=== PATIENT | female | born 1930 | race Caucasian/White ===

== ENCOUNTER → 2017-02-23 | Outpatient (CLI) | payer MEDICARE | END | disposition home or self-care (01) | LOC: RAH 08:26 | PROVIDERS: ATTEND Physical Medicine & Rehabilitation | DX: M47.896 Other spondylosis, lumbar region (principal); M48.061 Spinal stenosis, lumbar region without neurogenic claudication; M41.86 Other forms of scoliosis, lumbar region | CPT/HCPCS: 72148 ==

== ENCOUNTER → 2017-08-06 | Outpatient (CLI) | payer MEDICARE | END | disposition home or self-care (01) | LOC: RAH 12:32 | PROVIDERS: ATTEND Physical Medicine & Rehabilitation | DX: M48.061 Spinal stenosis, lumbar region without neurogenic claudication (principal); M41.86 Other forms of scoliosis, lumbar region | CPT/HCPCS: 72148 ==

== ENCOUNTER 2017-10-23 12:06 | Emergency (ER) | payer MEDICARE | END 2017-10-23 14:10 | disposition home or self-care (01) | LOC: EDH 12:06 | DX: S43.401A Unspecified sprain of right shoulder joint, initial encounter (principal); I10 Essential (primary) hypertension; W18.39XA Other fall on same level, initial encounter; Y93.01 Activity, walking, marching and hiking; Y92.89 Other specified places as the place of occurrence of the external cause; Y99.8 Other external cause status | CPT/HCPCS: 73030; 73060 ==

== ENCOUNTER → 2018-09-29 | Outpatient (CLI) | payer MEDICARE | END | disposition home or self-care (01) | LOC: RAH 08:39 | PROVIDERS: ATTEND Anesthesiology | DX: M48.54XA Collapsed vertebra, not elsewhere classified, thoracic region, initial encounter for fracture (principal); M51.16 Intervertebral disc disorders with radiculopathy, lumbar region; M47.26 Other spondylosis with radiculopathy, lumbar region; M41.85 Other forms of scoliosis, thoracolumbar region | CPT/HCPCS: 72148 ==

== ENCOUNTER → 2019-04-12 | Outpatient (CLI) | payer MEDICARE | END | disposition home or self-care (01) | LOC: RAH 11:19 | PROVIDERS: ATTEND Physical Medicine & Rehabilitation | DX: M47.816 Spondylosis without myelopathy or radiculopathy, lumbar region (principal); M41.86 Other forms of scoliosis, lumbar region | CPT/HCPCS: 72114 ==

== ENCOUNTER → 2019-04-14 | Outpatient (CLI) | payer MEDICARE | END | disposition home or self-care (01) | LOC: RAH 15:43 | PROVIDERS: ATTEND Physical Medicine & Rehabilitation | DX: S22.080A Wedge compression fracture of T11-T12 vertebra, initial encounter for closed fracture (principal); M47.27 Other spondylosis with radiculopathy, lumbosacral region; M41.85 Other forms of scoliosis, thoracolumbar region; M25.78 Osteophyte, vertebrae; X58.XXXA Exposure to other specified factors, initial encounter; Y93.89 Activity, other specified; Y92.89 Other specified places as the place of occurrence of the external cause; Y99.8 Other external cause status | CPT/HCPCS: 72148 ==

== ENCOUNTER 2019-04-20 07:19 | Emergency (ER) | payer MEDICARE ==
[2019-04-20] MEDS ORDERED: DEXAMETHASONE SOD PHOSPHATE 10MG/ML 1ML VIAL ONE (07:52)
[2019-04-20] MEDS ORDERED: KETOROLAC TROMETHAMINE 30MG/ML ONE (07:53)
== END 2019-04-20 08:59 | disposition home or self-care (01) ==
LOC: EDH 07:19
DX: M54.40 Lumbago with sciatica, unspecified side (principal); I10 Essential (primary) hypertension
CPT/HCPCS: 96372 ×2; 99284; J1100; J1885

== ENCOUNTER 2019-04-22 17:26 | Emergency (ER) | payer MEDICARE ==
[2019-04-22] MEDS ORDERED: TRAMADOL HCL 50 MG TABLET ONE (18:22)
[2019-04-22] MEDS ORDERED: ONDANSETRON ODT 4 MG TAB ONE (19:43)
[2019-04-22] MEDS ORDERED: MORPHINE SULFATE 4 MG/1ML SYG ONE (19:44)
== END 2019-04-22 20:35 | disposition home or self-care (01) ==
LOC: EDH 17:26
DX: G89.29 Other chronic pain (principal); M54.30 Sciatica, unspecified side; I10 Essential (primary) hypertension
CPT/HCPCS: 72192; 96372; 99284; J2270

== ENCOUNTER → 2019-07-25 | Outpatient (CLI) | payer MEDICARE | END | disposition home or self-care (01) | LOC: OIH 14:44 | PROVIDERS: ATTEND Physical Medicine & Rehabilitation | DX: M25.521 Pain in right elbow (principal); W19.XXXA Unspecified fall, initial encounter; Y93.89 Activity, other specified; Y92.89 Other specified places as the place of occurrence of the external cause; Y99.8 Other external cause status ==

== ENCOUNTER → 2019-11-07 | Outpatient (CLI) | payer MEDICARE | END | disposition home or self-care (01) | LOC: OIH 13:44 | PROVIDERS: ATTEND Physical Medicine & Rehabilitation | DX: M43.8X4 Other specified deforming dorsopathies, thoracic region (principal); M41.85 Other forms of scoliosis, thoracolumbar region; M47.814 Spondylosis without myelopathy or radiculopathy, thoracic region; M47.816 Spondylosis without myelopathy or radiculopathy, lumbar region | CPT/HCPCS: 72074 ==

== ENCOUNTER → 2019-11-16 | Outpatient (CLI) | payer MEDICARE | END | disposition home or self-care (01) | LOC: RAH 14:02 | PROVIDERS: ATTEND Physical Medicine & Rehabilitation | DX: M48.56XA Collapsed vertebra, not elsewhere classified, lumbar region, initial encounter for fracture (principal); M51.26 Other intervertebral disc displacement, lumbar region; M48.061 Spinal stenosis, lumbar region without neurogenic claudication | CPT/HCPCS: 72148 ==

== ENCOUNTER 2020-02-21 07:50 | Day surgery (SDC) | payer MEDICARE ==
[2020-02-21] VITALS (7 sets, daily range): BP systolic 97–127; BP diastolic 51–61
[~2020-02-21] VITALS: Ht 160 cm; Wt 51.1 kg
[~2020-02-21 07:50] MED LIST: DONE5TAB33 PO; FAMO20TA8 PO; FERR-63 PO; HYDR-4060 PO; LISI10TA7 PO; SODIUM CHLORIDE 0.9% 1000ML 1,000 ML IV ONE
[2020-02-21 08:50] LABS: BASOPHILS % (AUTO) 0.5 % (0.0-5.0); HEMATOCRIT 29.5 % (36-48); LYMPHOCYTES % (AUTO) 11.5 % (21.0-51.0); MEAN CORPUSCULAR HEMOGLOBIN 27.8 pg (27.0-33.0); MEAN CORPUSCULAR HGB CONC 31.5 g/dL (32.0-36.0); MEAN CORPUSCULAR VOLUME 88.1 fL (79-99); MONOCYTES % (AUTO) 15.3 % (3.0-13.0); NEUTROPHILS % (AUTO) 70.8 % (40.0-77.0); PLATELET COUNT (AUTO) 220 K/uL (130-400); RED BLOOD CELL COUNT(AUTO) 3.35 MIL/uL (4.00-5.50); RED CELL DISTRIBUTION WIDTH 24.4 % (11.0-15.5); WHITE BLOOD COUNT (AUTO) 5.8 K/uL (4.8-10.8)
[2020-02-21] MEDS ORDERED: PROPOFOL 10 MG/ML 20ML VIAL IV ONE (09:42)
[2020-02-21] MEDS ORDERED: GLYCOPYRROLATE 1 MG/5 ML SYRINGE ONE (10:08)
[2020-02-21] MEDS ORDERED: SODIUM CHLORIDE 0.9% 10 ML VIAL ONE (10:11)
== END 2020-02-21 10:50 | disposition home or self-care (01) ==
LOC: ENDO 07:50 → DAH 07:50 → ENDO 10:50
PROVIDERS: ATTEND Internal Medicine Gastroenterology
DX: D50.0 Iron deficiency anemia secondary to blood loss (chronic) (principal); K44.9 Diaphragmatic hernia without obstruction or gangrene; K29.50 Unspecified chronic gastritis without bleeding; K31.89 Other diseases of stomach and duodenum; I10 Essential (primary) hypertension; M19.90 Unspecified osteoarthritis, unspecified site; G30.1 Alzheimer's disease with late onset; M35.3 Polymyalgia rheumatica; Z79.899 Other long term (current) drug therapy
CPT/HCPCS: 36415; 43239; 45378; 85025; 88305; 88342; A4215; A4221; A4222; A4223; A4606; A4620; A4657; A4663; C9803; J2704; J3490; J7030; U0003

== ENCOUNTER 2021-03-16 19:37 | Inpatient (IN) | payer MEDICARE ==
[~2021-03-16] VITALS: Ht 160 cm; Wt 58.0 kg
[~2021-03-16 19:37] MED LIST changes: +LISI10TA24 PO; -LISI10TA7 PO; -SODIUM CHLORIDE 0.9% 1000ML 1,000 ML IV ONE
[2021-03-16] MEDS ORDERED: ONDANSETRON 4MG INJ IVP ONE (21:00)
[2021-03-16] MEDS ORDERED: MORPHINE 2 MG SYG IVP ONE (21:00)
[2021-03-16] MEDS ORDERED: TETANUS/DIPHTHERIA TOXOID [ADULT] 0.5 ML VIAL IM ONE (21:00)
[2021-03-16 22:22] LABS: BASOPHILS % (AUTO) 0.5 % (0.0-5.0); EOSINOPHILS % (AUTO) 1.6 % (0.0-8.0); HEMATOCRIT 32.8 % (36-48); LYMPHOCYTES % (AUTO) 10.6 % (21.0-51.0); MEAN CORPUSCULAR HEMOGLOBIN 31.3 pg (27.0-33.0); MEAN CORPUSCULAR VOLUME 97.6 fL (79-99); MONOCYTES % (AUTO) 17.9 % (3.0-13.0); NEUTROPHILS % (AUTO) 68.9 % (40.0-77.0); PLATELET COUNT (AUTO) 192 K/uL (130-400); RED BLOOD CELL COUNT(AUTO) 3.36 MIL/uL (4.00-5.50); RED CELL DISTRIBUTION WIDTH 14.6 % (11.0-15.5); WHITE BLOOD COUNT (AUTO) 8.1 K/uL (4.8-10.8)
[2021-03-16] MEDS ORDERED: HYDROMORPHONE 1 MG INJ IV PRN (22:30)
[2021-03-16] MEDS ORDERED: ONDANSETRON 4MG INJ IV PRN (22:30)
[2021-03-16 22:37] LABS: POTASSIUM 5.3 mmol/L (3.5-5.1)
[2021-03-16 22:39] LABS: INR 1.03 (0.85-1.15); PROTHROMBIN TIME 11.2 SEC (9.6-11.6)
[2021-03-16 22:41] LABS: ALBUMIN 4.3 g/dL (3.5-5.0); BILIRUBIN,TOTAL 0.3 mg/dL (0.2-1.0); TOTAL PROTEIN, SERUM 7.7 g/dL (6.0-8.3)
[2021-03-16] MEDS: 0.9%NACL 1000ML 1,000 ML IV SCH (23:20)
[2021-03-17 01:01] LABS: APPEARANCE,URINE Clear (CLEAR); BILIRUBIN,URINE Negative (NEGATIVE); COLOR,URINE Yellow (YELLOW); GLUCOSE, URINE (UA) Negative (NEGATIVE); KETONES,URINE Negative (NEGATIVE); LEUKOCYTE ESTERASE ,URINE Trace (NEGATIVE); NITRATE,URINE Negative (NEGATIVE); OCCULT BLOOD,URINE Negative (NEGATIVE); PROTEIN,URINE Negative (NEGATIVE); UROBILINOGEN,URINE 0.2 mg/dL (0.2-1.0)
[2021-03-17 01:13] LABS: BACTERIA,URINE Rare /HPF (None Seen); RBC,URINE None Seen /HPF (0-1); SQUAMOUS EPITHELIAL CELL,UR Few /HPF (0-2); WBC,URINE None Seen /HPF (0-1)
[2021-03-17 02:00] VITALS: BP 135/56
[2021-03-17] MEDS: MORPHINE 2 MG SYG IV PRN ×2 (02:41→07:37)
[2021-03-17 05:59] LABS: BASOPHILS % (AUTO) 0.3 % (0.0-5.0); EOSINOPHILS % (AUTO) 1.5 % (0.0-8.0); HEMATOCRIT 24.7 % (36-48); LYMPHOCYTES % (AUTO) 12.5 % (21.0-51.0); MEAN CORPUSCULAR HEMOGLOBIN 30.7 pg (27.0-33.0); MEAN CORPUSCULAR HGB CONC 31.6 g/dL (32.0-36.0); MEAN CORPUSCULAR VOLUME 97.2 fL (79-99); MONOCYTES % (AUTO) 21.5 % (3.0-13.0); NEUTROPHILS % (AUTO) 63.9 % (40.0-77.0); PLATELET COUNT (AUTO) 144 K/uL (130-400); RED BLOOD CELL COUNT(AUTO) 2.54 MIL/uL (4.00-5.50); RED CELL DISTRIBUTION WIDTH 14.6 % (11.0-15.5)
[2021-03-17 06:11] LABS: CREATININE 0.8 mg/dL (0.5-1.5); MAGNESIUM 1.8 mg/dL (1.80-2.40); PHOSPHORUS 3.4 mg/dL (2.5-4.9); POTASSIUM 4.3 mmol/L (3.5-5.1)
[2021-03-17 08:10] VITALS: BP 124/59
[2021-03-17] MEDS ORDERED: FAMOTIDINE 20MG TAB PO SCH (09:00)
[2021-03-17] MEDS ORDERED: MORPHINE 2 MG SYG IV PRN (10:30)
[2021-03-17] MEDS ORDERED: HYDR-4060 PO (10:38)
[2021-03-17] MEDS ORDERED: LISI10TA24 PO (10:38)
[2021-03-17] MEDS ORDERED: FAMO20TA8 PO (10:38)
[2021-03-17] MEDS ORDERED: FERS325 PO (10:38)
[2021-03-17] MEDS ORDERED: DONE5TAB33 PO (10:38)
[2021-03-17] MEDS: 0.9%NACL 1000ML 1,000 ML IV SCH (10:59)
[2021-03-17 11:50] VITALS: BP 126/69
[2021-03-17 11:52] LABS: HEMATOCRIT 27.4 % (36-48)
[2021-03-17] MEDS: KETOROLAC 15MG/ML VIAL (15MG/ML) IV PRN ×2 (12:20→17:24)
[2021-03-17 15:59] VITALS: BP 151/82
[2021-03-17 20:11] VITALS: BP 152/57
[2021-03-17] MEDS: FERROUS SULFATE 325 MG TABLET.DR PO SCH (20:39)
[2021-03-17] MEDS: HYDROCODONE/ACETAMINOPHEN 5/325 MG TAB PO SCH (20:40)
[2021-03-17 23:46] VITALS: BP 157/77
[2021-03-18] MEDS: 0.9%NACL 1000ML 1,000 ML IV SCH (03:24)
[2021-03-18 05:09] VITALS: BP 153/71
[2021-03-18 05:41] LABS: % IRON SATURATION 16.8 % (22-44)
[2021-03-18 06:18] LABS: BASOPHILS % (AUTO) 0.5 % (0.0-5.0); EOSINOPHILS % (AUTO) 2.8 % (0.0-8.0); HEMATOCRIT 23.5 % (36-48); LYMPHOCYTES % (AUTO) 9.8 % (21.0-51.0); MEAN CORPUSCULAR HEMOGLOBIN 31.5 pg (27.0-33.0); MEAN CORPUSCULAR HGB CONC 32.3 g/dL (32.0-36.0); MEAN CORPUSCULAR VOLUME 97.5 fL (79-99); MONOCYTES % (AUTO) 22.5 % (3.0-13.0); NEUTROPHILS % (AUTO) 63.7 % (40.0-77.0); PLATELET COUNT (AUTO) 154 K/uL (130-400); RED BLOOD CELL COUNT(AUTO) 2.41 MIL/uL (4.00-5.50); RED CELL DISTRIBUTION WIDTH 14.6 % (11.0-15.5)
[2021-03-18 06:31] LABS: CREATININE 0.7 mg/dL (0.5-1.5); POTASSIUM 4.2 mmol/L (3.5-5.1)
[2021-03-18 07:55] VITALS: BP 149/72
[2021-03-18] MEDS: FERROUS SULFATE 325 MG TABLET.DR PO SCH ×2 (08:47→21:08)
[2021-03-18] MEDS: FAMOTIDINE 20MG TAB PO SCH (08:47)
[2021-03-18] MEDS: DONEPEZIL HCL 5 MG TAB PO SCH (08:47)
[2021-03-18] MEDS: HYDROCODONE/ACETAMINOPHEN 5/325 MG TAB PO SCH ×2 (08:47→21:08)
[2021-03-18] MEDS: LISINOPRIL 10 MG TABLET PO SCH (08:48)
[2021-03-18] MEDS: IRON SUCROSE COMPLEX 500 MG in 0.9%NACL 50ML 50 ML IV SCH (10:45)
[2021-03-18] MEDS ORDERED: COMPOUND IV MISC 1 EACH IVSOLN MISC PRN (11:00)
[2021-03-18 11:15] VITALS: BP 128/62
[2021-03-18] MEDS: NEOMY SULF/BACITRAC ZN/POLY OINT 30GM TUBE TP SCH ×2 (15:44→21:08)
[2021-03-18 16:15] VITALS: BP 136/66
[2021-03-18 20:26] VITALS: BP 141/72
[2021-03-18] MEDS ORDERED: MAGNESIUM 2GM PREMIX 50ML 50 ML IV ONE (20:52)
[2021-03-18] MEDS ORDERED: MAGNESIUM 2GM PREMIX 50ML 50 ML IV PRN (21:30)
[2021-03-18 23:45] VITALS: BP 158/69
[2021-03-19 05:09] VITALS: BP 120/72
[2021-03-19] MEDS: HYDROCODONE/ACETAMINOPHEN 5/325 MG TAB PO SCH (05:17)
[2021-03-19 06:14] LABS: BASOPHILS % (AUTO) 0.5 % (0.0-5.0); LYMPHOCYTES % (AUTO) 5.8 % (21.0-51.0); MEAN CORPUSCULAR HEMOGLOBIN 30.9 pg (27.0-33.0); MEAN CORPUSCULAR HGB CONC 31.8 g/dL (32.0-36.0); MEAN CORPUSCULAR VOLUME 97.2 fL (79-99); MONOCYTES % (AUTO) 17.5 % (3.0-13.0); NEUTROPHILS % (AUTO) 73.4 % (40.0-77.0); PLATELET COUNT (AUTO) 196 K/uL (130-400); RED BLOOD CELL COUNT(AUTO) 2.88 MIL/uL (4.00-5.50); RED CELL DISTRIBUTION WIDTH 14.9 % (11.0-15.5); WHITE BLOOD COUNT (AUTO) 8.6 K/uL (4.8-10.8)
[2021-03-19 07:08] LABS: ALBUMIN 2.9 g/dL (3.5-5.0); BILIRUBIN,TOTAL 0.4 mg/dL (0.2-1.0); CREATININE 0.8 mg/dL (0.5-1.5); MAGNESIUM 2.5 mg/dL (1.80-2.40); POTASSIUM 4.3 mmol/L (3.5-5.1); TOTAL PROTEIN, SERUM 5.8 g/dL (6.0-8.3)
[2021-03-19 07:40] VITALS: BP 155/73
[2021-03-19] MEDS: NEOMY SULF/BACITRAC ZN/POLY OINT 30GM TUBE TP SCH (09:00)
[2021-03-19] MEDS: FERROUS SULFATE 325 MG TABLET.DR PO SCH (09:27)
[2021-03-19] MEDS: FAMOTIDINE 20MG TAB PO SCH (09:27)
[2021-03-19] MEDS: DONEPEZIL HCL 5 MG TAB PO SCH (09:27)
[2021-03-19] MEDS: LISINOPRIL 10 MG TABLET PO SCH (09:27)
[2021-03-19 11:05] VITALS: BP 132/67
[2021-03-19] MEDS: IRON SUCROSE COMPLEX 500 MG in 0.9%NACL 50ML 50 ML IV SCH (11:17)
== END 2021-03-19 15:31 | DRG 563 ==
LOC: EDH 19:37 → EDHIP 22:16 → 3AH 03-17 02:00
PROVIDERS: ADMIT Internal Medicine; ATTEND Internal Medicine
PROC: 3E0234Z Introduction of Serum, Toxoid and Vaccine into Muscle, Percutaneous Approach (ICD-10-PCS; 2021-03-16)
PROC: 0HBRXZZ Excision of Toe Nail, External Approach (ICD-10-PCS; principal; 2021-03-18)
PROC: 0HBRXZZ Excision of Toe Nail, External Approach (ICD-10-PCS; 2021-03-18)
PROC: 0HBRXZZ Excision of Toe Nail, External Approach (ICD-10-PCS; 2021-03-18)
PROC: 0HBRXZZ Excision of Toe Nail, External Approach (ICD-10-PCS; 2021-03-18)
PROC: 0HBRXZZ Excision of Toe Nail, External Approach (ICD-10-PCS; 2021-03-18)
PROC: 0HBRXZZ Excision of Toe Nail, External Approach (ICD-10-PCS; 2021-03-18)
PROC: 0HBRXZZ Excision of Toe Nail, External Approach (ICD-10-PCS; 2021-03-18)
PROC: 0HBRXZZ Excision of Toe Nail, External Approach (ICD-10-PCS; 2021-03-18)
PROC: 0HBRXZZ Excision of Toe Nail, External Approach (ICD-10-PCS; 2021-03-18)
PROC: 0HBRXZZ Excision of Toe Nail, External Approach (ICD-10-PCS; 2021-03-18)
DX: S42.212A Unspecified displaced fracture of surgical neck of left humerus, initial encounter for closed fracture (principal); S51.012A Laceration without foreign body of left elbow, initial encounter; E87.5 Hyperkalemia; I10 Essential (primary) hypertension; M85.88 Other specified disorders of bone density and structure, other site; B35.1 Tinea unguium; L60.2 Onychogryphosis; Z20.822 Contact with and (suspected) exposure to COVID-19; F03.90 Unspecified dementia, unspecified severity, without behavioral disturbance, psychotic disturbance, mood disturbance, and anxiety; M41.9 Scoliosis, unspecified; G89.29 Other chronic pain; W01.0XXA Fall on same level from slipping, tripping and stumbling without subsequent striking against object, initial encounter; Y93.89 Activity, other specified; Y92.090 Kitchen in other non-institutional residence as the place of occurrence of the external cause; Y99.8 Other external cause status; Z23 Encounter for immunization; Z90.710 Acquired absence of both cervix and uterus
CPT/HCPCS: 36415; 70450; 72125; 73030; 73070; 73521; 80048; 80053; 81001; 82728; 83540; 83550; 83735; 84100; 84484; 85014; 85018; 85025; 85610; 86850; 86900; 86901; 87635; 90714; 93005; 97039; G0378; J1170; J1756; J1885; J2405; J3475; J7030